=== PATIENT | male | born 1970 | race African-American/Black ===

== ENCOUNTER 2019-01-02 12:49 | Emergency (ER) | payer BC ==
[2019-01-02] MEDS ORDERED: diphenhydrAMINE 50 MG/ML VIAL ONE (14:29)
[2019-01-02] MEDS ORDERED: Ketorolac Tromethamine 30 MG/ML VIAL ONE ×2 (14:29→15:40)
[2019-01-02] MEDS ORDERED: Metoclopramide HCl 10 MG/2 ML VIAL ONE (14:29)
[2019-01-02] MEDS ORDERED: diphenhydrAMINE 25 MG CAP ONE (15:40)
[2019-01-02] MEDS ORDERED: Ondansetron ODT 4 MG TAB ONE ×2 (15:40→15:49)
== END 2019-01-02 16:15 | disposition home or self-care (01) ==
LOC: ERS 12:49
DX: J30.2 Other seasonal allergic rhinitis (principal); G43.909 Migraine, unspecified, not intractable, without status migrainosus; I10 Essential (primary) hypertension
CPT/HCPCS: 96372; J1200; J1885; J2765; Q0162; Q0163

== ENCOUNTER 2019-01-05 13:04 | Emergency (ER) | payer BC | END 2019-01-05 14:23 | disposition left against medical advice (07) | LOC: ERS 13:04 | DX: Z53.21 Procedure and treatment not carried out due to patient leaving prior to being seen by health care provider (principal) ==

== ENCOUNTER 2021-09-14 17:43 | Emergency (ER) | payer BC | END 2021-09-14 20:15 | disposition home or self-care (01) | LOC: ERS 17:43 | DX: G43.909 Migraine, unspecified, not intractable, without status migrainosus (principal); R03.0 Elevated blood-pressure reading, without diagnosis of hypertension | CPT/HCPCS: 99283 ==

== ENCOUNTER 2021-09-17 14:19 | Emergency (ER) | payer BC ==
[2021-09-17] MEDS ORDERED: diphenhydrAMINE 50 MG/ML VIAL ONE (19:26)
[2021-09-17] MEDS ORDERED: Ketorolac Tromethamine 30 MG/ML VIAL ONE (19:26)
[2021-09-17] MEDS ORDERED: Metoclopramide HCl 10 MG/2 ML VIAL ONE (19:26)
== END 2021-09-17 20:29 | disposition home or self-care (01) ==
LOC: ERS 14:19
DX: G43.909 Migraine, unspecified, not intractable, without status migrainosus (principal); I10 Essential (primary) hypertension
CPT/HCPCS: 96365; 96375; J1200; J1885; J2765

== ENCOUNTER 2023-07-08 00:03 | Emergency (ER) | payer BC | END 2023-07-08 00:19 | disposition left against medical advice (07) | LOC: ERS 00:03 | DX: Z53.21 Procedure and treatment not carried out due to patient leaving prior to being seen by health care provider (principal) ==

== ENCOUNTER 2023-07-08 10:45 | Inpatient (IN) | payer BC ==
[2023-07-08] MEDS ORDERED: fentaNYL PF 100 MCG/2 ML SYRINGE ONE (12:43)
[2023-07-08] MEDS ORDERED: Bupivacaine 0.25% HCL 30 ML VIAL ONE (12:44)
[2023-07-08] MEDS ORDERED: EPINEPHrine 1 MG/ML AMP ONE (12:44)
[2023-07-08] MEDS ORDERED: Succinylcholine 200 MG/10 ml SYRINGE FS ONE (12:58)
[2023-07-08] MEDS ORDERED: Ondansetron PF 4 MG/2 ML Vial ONE (12:58)
[2023-07-08] MEDS ORDERED: Glycopyrrolate 0.2 MG/ML 5 ML SYRINGE ONE (12:58)
[2023-07-08] MEDS ORDERED: PROPOFOL 200 MG/20 ML VIAL ONE (12:58)
[2023-07-08] MEDS ORDERED: ePHEDrine Sulfate 50 MG/10 ML VIAL ONE (12:58)
[2023-07-08] MEDS ORDERED: Dexamethasone 20 MG/5 ML VIAL ONE (12:58)
[2023-07-08] MEDS ORDERED: NEOSTIGMINE 3 MG/3 ML SYR 3 MG/3 ML SYRINGE ONE (12:58)
[2023-07-08] MEDS ORDERED: Rocuronium Bromide 10 MG/ML (10ML VIAL) ONE (12:58)
[2023-07-08] MEDS ORDERED: Lidocaine 1% PF 5 ML VIAL ONE (12:58)
[2023-07-08] MEDS ORDERED: Piperacillin/Tazobactam 3.375 GM VIAL ONE (13:08)
[2023-07-08] MEDS ORDERED: Sodium Chloride 0.9% 100 ML ONE (13:08)
[2023-07-08] MEDS ORDERED: Glucagon 1 MG/ML KIT IM PRN (13:46)
[2023-07-08] MEDS ORDERED: Morphine 4 MG/ML VIAL SLOW IVP PRN (13:46)
[2023-07-08] MEDS ORDERED: Dextrose 5% in Water 1,000 ML IV PRN (13:46)
[2023-07-08] MEDS ORDERED: Ondansetron PF 4 MG/2 ML Vial IVP PRN (13:46)
[2023-07-08] MEDS ORDERED: hydrALAZINE 20 MG/ML VIAL SLOW IVP PRN (13:46)
[2023-07-08] MEDS ORDERED: Promethazine HCl 25 MG/ML VIAL IM PRN ×2 (13:46→13:51)
[2023-07-08] MEDS ORDERED: Dextrose 50% Abboject 50 ML SYRINGE SLOW IVP PRN (13:46)
[2023-07-08] MEDS ORDERED: HYDROcodone/Acetaminophen 10/325 mg Tablet PO PRN ×2 (13:46)
[2023-07-08] MEDS ORDERED: Ipratropium/Albuterol 3 ML NEB NEB PRN (13:46)
[2023-07-08] MEDS ORDERED: Morphine 2 MG/ML VIAL SLOW IVP PRN (13:46)
[2023-07-08] MEDS ORDERED: Ondansetron HCl/PF 4 MG/2 ML Vial IVP PRN (13:51)
[2023-07-08] MEDS ORDERED: fentaNYL 50 mcg/mL 1 mL Vial ONE (14:25)
[2023-07-08 15:29] VITALS: BMI 25.0
[2023-07-08] MEDS: D5 1/2 NS w/20 mEq KCL 1,000 ML IV SCH ×2 (15:59→23:38)
[2023-07-08] MEDS: Ketorolac Tromethamine 30 MG/ML VIAL IVP SCH ×2 (15:59→23:35)
[2023-07-08] MEDS: Piperacillin/Tazobactam 3.375 GM in Sodium Chloride 0.9% 100 ML IVPB SCH (17:59)
[2023-07-08] MEDS ORDERED: Piperacillin/Tazobactam 3.375 GM in Sodium Chloride 0.9% 100 ML IVPB SCH (18:00)
[2023-07-08] MEDS ORDERED: Ketorolac Tromethamine 30 MG/ML VIAL IVP SCH (18:00)
[2023-07-08] MEDS: Famotidine 20 MG TAB PO SCH (20:23)
[2023-07-08] MEDS: Famotidine/PF 20 mg/2ml Vial SLOW IVP SCH (20:24)
[2023-07-09] MEDS: Piperacillin/Tazobactam 3.375 GM in Sodium Chloride 0.9% 100 ML IVPB SCH ×2 (04:08→09:27)
[2023-07-09] MEDS: Ketorolac Tromethamine 30 MG/ML VIAL IVP SCH ×2 (05:11→09:26)
[2023-07-09] MEDS: D5 1/2 NS w/20 mEq KCL 1,000 ML IV SCH (05:26)
[2023-07-09 06:59] LABS: #Monocytes 0.6 thou/uL (0.11-0.59); #Neutrophils 8.1 thou/uL (1.40-6.50); %Basophils 0.1 % (0.0-1.0); %Lymphocytes 8.6 % (21.0-51.0); %Monocytes 5.9 % (0.0-10.0); Hematocrit 39.5 % (42.0-52.0); Hemoglobin 12.8 g/dL (14.0-18.0); Mean Corpuscular HGB CONC 32.4 g/dL (32.0-36.0); Mean Corpuscular Hemoglobin 28.5 pg (27.0-31.0); Mean Platelet Volume 11.1 fL (7.4-10.4); Platelet Count 165 10x3/uL (130-400); RBC Distribution Width 11.2 % (11.5-14.5); Red Blood Cell (RBC) Count 4.49 mill/uL (4.70-6.10); White Blood Cell (WBC) Count 9.5 10x3/uL (4.8-10.8)
[2023-07-09 07:26] LABS: Anion Gap 12 mmol/L (10-20); BUN (Urea Nitrogen) 13 mg/dL (8.4-25.7); Calc. Creatinine Clearance 112 mL/min (70-130); Calcium 9.4 mg/dL (7.8-10.44); Carbon Dioxide 25 mmol/L (22-29); Chloride 101 mmol/L (98-107); Estimated GFR 103; Glucose 236 mg/dL (70-105); Potassium 4.2 mmol/L (3.5-5.1); Sodium 134 mmol/L (136-145)
[2023-07-09] MEDS: Famotidine 20 MG TAB PO SCH (09:27)
[2023-07-09] MEDS: Famotidine/PF 20 mg/2ml Vial SLOW IVP SCH (09:27)
[2023-07-09 11:35] VITALS: BP 155/86; TEMP 98.4
== END 2023-07-09 11:27 | disposition home or self-care (01) | DRG 399 ==
LOC: SDC/OP 10:45 → T4-B 14:54
PROVIDERS: ADMIT Surgery; ATTEND Surgery
PROC: 0DTJ4ZZ Resection of Appendix, Percutaneous Endoscopic Approach (ICD-10-PCS; principal; 2023-07-08)
PROC: 0D9J4ZZ Drainage of Appendix, Percutaneous Endoscopic Approach (ICD-10-PCS; 2023-07-08)
PROC: 3E033XZ Introduction of Vasopressor into Peripheral Vein, Percutaneous Approach (ICD-10-PCS; 2023-07-08)
DX: K35.33 Acute appendicitis with perforation, localized peritonitis, and gangrene, with abscess (principal)
CPT/HCPCS: 36415; 80048; 85025; 87070; 87077; 87186; 87205; 88304; A4649; J0171; J1100; J1885; J2405; J2543; J2704; J3010; J3480; J3490; S0020